=== PATIENT | male | born 1970 | race Two or more races ===

== ENCOUNTER 2016-12-15 13:31 | Emergency (ER) ==
[2016-12-15 13:39] VITALS: BP 121/83; TEMP 97.1; BMI 30.7
--- NOTE | 2016-12-15 13:52 | ED.PDOC ---
General ED Provider: Dr. SUMIT TEMPLE Chief Complaint: Sore Throat Stated Complaint: sore throat Time Seen by Physician: 13:38 Mode of Arrival: Walk-In Information Source: Patient Exam Limitations: No limitations Primary Care Provider: CHRIS CHU Nursing and Triage Documentation Reviewed and Agree: Yes EENT Complaint Exam - Throat Complaint/Exam Onset/Duration: 1 day Symptoms Are: Still present Timimg: Constant Initial Severity: Mild Current Severity: Mild Aggravating: Reports: Eating Alleviating: Reports: None Associated Signs and Symptoms: Reports: Cough. Denies: Fever, Dysphagia, Drooling, Foreign body sensation, Chills, Wheezing, Hoarseness, Sinus discomfort , Nasal congestion, Difficulty breathing, Lethargy, Irritability, Decreased activity, Vomiting, Diarrhea, Decreased hearing, Ear drainage Related History: Reports: Similar Episode Uvula Midline: Yes Kayla-tonsillar Fluctuence: No Scarlatinaform Rash Present: No Lesions: Absent: Lip, Gums, Tongue, Buccal Mucosa, Pharynx Exanthem: Absent: Lip, Gums, Tongue, Buccal Mucosa, Pharynx Vesicles: Absent: Lip, Gums, Tongue, Buccal Mucosa, Pharynx Stridor Present: No Sinus Tenderness Present: No Tonsillar Hypertrophy Present: No Tonsillar Exudate Present: No Kayla-tonsillar Swelling Present: No Adenopathy Present: No Splenomegaly Present: No Differential Diagnoses: Pharyngitis Review of Systems - Review Of Systems Constitutional: Reports: No symptoms Eyes: Reports: No symptoms Ears, Nose, Mouth, Throat: Reports: Throat pain Respiratory: Reports: Cough Cardiac: Reports: No symptoms GI: Reports: No symptoms : Reports: No symptoms Musculoskeletal: Reports: No symptoms Skin: Reports: No symptoms Neurological: Reports: No symptoms Endocrine: Reports: No symptoms Hematologic/Lymphatic: Reports: No symptoms All Other Systems: Reviewed and Negative Past Medical History - Past Medical History Previously Healthy: Yes Endocrine: Reports: None Cardiovascular: Reports: None Respiratory: Reports: None Hematological: Reports: None Gastrointestinal: Reports: None Genitourinary: Reports: None Neuro/Psych: Reports: None Musculoskeletal: Reports: None Cancer: Reports: None - Surgical History General Surgical History: Reports: None - Family History Family History: Reports: None - Social History Smoking Status: Never smoker Hx Substance Use: No Alcohol Screening: Occasionally Physical Exam - Physical Exam Appearance: Well-appearing, No pain distress, Well-nourished Eyes: FAUZIA, EOMI, Conjunctiva clear ENT: Erythema Respiratory: Airway patent, Breath sounds clear, Breath sounds equal, Respirations nonlabored Cardiovascular: RRR, Pulses normal, No rub, No murmur GI/: Soft, Nontender, No masses, Bowel sounds normal, No Organomegaly Musculoskeletal: Normal strength, ROM intact, No edema, No calf tenderness Skin: Warm, Dry, Normal color Neurological: Sensation intact, Motor intact, Reflexes intact, Cranial nerves intact, Alert, Oriented Psychiatric: Affect appropriate, Mood appropriate Critical Care Note - Critical Care Note Total Time (mins): 0 Course - Course Vital Signs: Temp Pulse Resp BP Pulse Ox 12/15/16 13:35 97.1 F L 91 H 16 121/83 95 Departure - Departure Time of Disposition: 13:51 Disposition: HOME SELF-CARE Discharge Problem: Sore throat symptom Instructions: Strep Throat (ED), Pharyngitis (ED) Condition: Good Pt referred to PMD for follow-up: No Additional Instructions: Please call your Family Physician as soon as possible to schedule a follow-up appointment. Allergies/Adverse Reactions: Allergies No Known Allergies Allergy (Unverified 12/15/16 13:34) Home Medications: Ambulatory Orders 1 [No Reported Medications] 12/15/16
== END 2016-12-15 14:02 | disposition home or self-care (01) ==
LOC: ED 13:31
DX: J02.9 Acute pharyngitis, unspecified (principal)
CPT/HCPCS: 99282